=== PATIENT | female | born 1950 | race Caucasian/White ===

== ENCOUNTER 2017-02-24 08:23 | Day surgery (SDC) | payer OTHER, BC ==
[2017-02-17 11:39] VITALS: BMI 32.0
[2017-02-24] MEDS ORDERED: ROPIVICAINE 0.2%/MORPH PF/KETOROLAC - 51ML DISP.SYRINGE IA ONE ×2 (08:59→14:16)
[2017-02-24] MEDS ORDERED: oxyCODONE HCL 10 MG SUSTAINED ACTING TABLET PO ONE (08:59)
[2017-02-24] MEDS ORDERED: CEFAZOLIN 2 GM in DEXTROSE 5%-WATER - 50 ML IVPB ONE (08:59)
[2017-02-24] MEDS ORDERED: TRANEXAMIC ACID 1000 MG/10 ML VIAL IVPUSH ONE ×2 (08:59→14:15)
[2017-02-24] MEDS: CELECOXIB 200 MG CAPSULE PO ONE ×2 (09:04→17:55)
[2017-02-24] MEDS: GABAPENTIN 300 MG CAPSULE (FP) PO ONE ×2 (09:05→17:56)
[2017-02-24] MEDS ORDERED: ROPIVACAINE HCL 0.5% 30ML VIAL ONE (09:33)
[2017-02-24] MEDS ORDERED: DEXAMETHASONE SOD PHOSPHATE/PF 10 MG/ML SDV ONE (09:33)
[2017-02-24] MEDS ORDERED: MIDAZOLAM HCL 2 MG/2 ML SINGLE DOSE VIAL ONE ×2 (09:33→14:43)
[2017-02-24] MEDS ORDERED: BUPIVACAINE HCL/PF (5 MG/ML) 30 ML VIAL IJ ONE (09:56)
[2017-02-24] MEDS ORDERED: ceFAZolin SODIUM 1 GM VIAL ONE ×2 (10:25→11:25)
[2017-02-24] MEDS ORDERED: THROMBIN (BOVINE) 5,000 UNIT VIAL TP ONE (10:25)
[2017-02-24] MEDS ORDERED: GELATIN, ABSORBABLE 100 EACH SPONGE TP ONE (10:55)
--- NOTE | 2017-02-24 11:13 | HP ---
Admitting History and Physical - Admission Chief Complaint: left knee medial compartment OA. No pain in lateral or patellofemoral compartments. History of Present Illness: see office notes History Source: Patient Limitations to Obtaining History: No Limitations - Past Medical History ...: No Musculoskeletal: Yes: Osteoarthritis - Smoking History Smoking history: Former smoker Have you smoked in the past 12 months: No If you are a former smoker, when did you quit?: - Alcohol/Substance Use Hx Alcohol Use: Yes (SOCIALLY) Home Medications - Allergies Allergies/Adverse Reactions: Allergies Allergy/AdvReac Type Severity Reaction Status Date / Time morphine AdvReac Intermediate NAUSEA/VOMI Verified 02/24/17 08:42 TING oxycodone AdvReac Intermediate NAUSEA/VOMI Verified 02/24/17 08:42 TING SEASONAL Allergy Intermediate NASAL Uncoded 02/24/17 08:42 CONGESTION - Home Medications Home Medications: Ambulatory Orders Cholecalciferol (Vitamin D3) [Vitamin D3] 2,000 unit PO DAILY 02/17/17 Fluticasone Prop 0.05% Nasal [Flonase -] 1 - 2 spray NS DAILY PRN 02/17/17 Gabapentin 800 mg PO HS 02/17/17 Meloxicam [Mobic] 15 mg PO BID PRN 02/17/17 Multivitamins [Tab-A-Vit -] 1 tab PO DAILY 02/17/17 Tramadol HCl [Ultram] 1 - 2 tab PO Q6H PRN 02/17/17 Physical Examination Vital Signs: Vital Signs Temperature Pulse Rate Respiratory Rate Blood Pressure O2 Sat by Pulse Oximetry (%) 98 02/24/17 08:53 Constitutional: Yes: Well Nourished, No Distress Eyes: Yes: WNL, Conjunctiva Clear HENT: Yes: WNL, Atraumatic, Normocephalic Neck: Yes: WNL, Supple Cardiovascular: Yes: WNL, Regular Rate and Rhythm Respiratory: Yes: WNL, Regular Gastrointestinal: Yes: WNL, Soft, Abdomen, Obese ...Rectal Exam: Yes: Deferred Musculoskeletal: Yes: Joint Stiffness, Joint Swelling, Muscle Pain, Muscle Weakness Extremities: Yes: WNL Edema: No Peripheral Pulses WNL: No Integumentary: Yes: WNL Wound/Incision: Yes: Clean/Dry Neurological: Yes: WNL, Alert, Oriented ...Motor Strength: WNL Psychiatric: Yes: WNL, Alert, Oriented Labs: reviewed in chart Imaging - Results X-ray: Image Reviewed Cat Scan: Image Reviewed Assessment/Plan 66yo female with left knee OA, 100% of pain is on medial side - indicated for medial unicompartmental knee replacement, MAKOplasty.
[2017-02-24] MEDS ORDERED: TRANEXAMIC ACID 1000 MG/10 ML VIAL ONE ×2 (11:25→13:59)
[2017-02-24] MEDS ORDERED: PHENYLEPHRINE HCL 10 MG/1 ML SINGLE DOSE VIAL ONE (11:30)
[2017-02-24] MEDS ORDERED: VANCOMYCIN 1,000 MG VIAL (RESTRICTED TO ID ONLY) ONE (12:02)
[2017-02-24] MEDS ORDERED: ONDANSETRON 4 MG/2 ML VIAL ONE (12:28)
[2017-02-24] MEDS ORDERED: ePHEDrine SULFATE 50 MG/1 ML AMPULE ONE (12:31)
[2017-02-24] MEDS ORDERED: ONDANSETRON 4 MG/2 ML VIAL IVPB PRN (14:14)
[2017-02-24] MEDS ORDERED: MAG HYDROX/AL HYDROX/SIMETH 30 ML UNIT-DOSE CUP PO PRN (14:14)
[2017-02-24] MEDS ORDERED: LACTATED RINGERS SOLUTION 1,000 ML IV SCH (14:15)
[2017-02-24] MEDS ORDERED: VANCOMYCIN 1,000 MG VIAL (RESTRICTED TO ID ONLY) IVPB ONE (14:17)
[2017-02-24] MEDS ORDERED: oxyCODONE HCL 5 MG TABLET PO PRN ×2 (15:28)
[2017-02-24] MEDS: traMADol HCL 50 MG TABLET PO SCH ×2 (17:57→21:37)
[2017-02-24] MEDS: KETOROLAC TROMETHAMINE 30 MG/1 ML VIAL IVPUSH SCH ×2 (17:57→20:23)
[2017-02-24] MEDS: ACETAMINOPHEN 325 MG TABLET (FP) PO SCH ×2 (17:57→21:39)
--- NOTE | 2017-02-24 18:06 | OP ---
Operative Note - Note: Operative Date: 02/24/17 Pre-Operative Diagnosis: left knee medial comparment OA Operation: Left TKA Post-Operative Diagnosis: Same as Pre-op Surgeon: Kian Young Candle Wrapping Machine Operator: Malia Quiroz Anesthesia: Spinal
[2017-02-24] MEDS: CEFAZOLIN 2 GM/D5W 50 ML IVPB SCH (19:07)
[2017-02-24] MEDS: oxyCODONE HCL 10 MG SUSTAINED ACTING TABLET PO SCH (21:38)
[2017-02-24] MEDS: GABAPENTIN 300 MG CAPSULE (FP) PO SCH (21:38)
[2017-02-24] MEDS: SENNOSIDES/DOCUSATE COMBO (SENNA PLUS) TABLET (UD) PO SCH (21:39)
[2017-02-24] MEDS: ASCORBIC ACID 500 MG TABLET (FP) PO SCH (21:39)
[2017-02-24] MEDS: CELECOXIB 200 MG CAPSULE PO SCH (21:39)
[2017-02-25] MEDS: KETOROLAC TROMETHAMINE 30 MG/1 ML VIAL IVPUSH SCH ×2 (01:52→09:08)
[2017-02-25] MEDS: CEFAZOLIN 2 GM/D5W 50 ML IVPB SCH (02:31)
[2017-02-25] MEDS: traMADol HCL 50 MG TABLET PO SCH ×2 (02:32→09:09)
[2017-02-25] MEDS: ACETAMINOPHEN 325 MG TABLET (FP) PO SCH ×2 (05:44→09:12)
[2017-02-25 07:09] VITALS: BP 117/54; PULSE 76; TEMP 98
[2017-02-25] MEDS ORDERED: ASPIRIN 325 MG TABLET PO SCH (08:00)
[2017-02-25 08:50] LABS: MCHC 33.9 g/dl (32.0-36.0); MEAN CELL VOLUME 88.7 fl (80-96); MEAN PLT VOLUME 7.7 fl (7.5-11.1); PLATELET COUNT 355 K/MM3 (134-434); RDW 13.2 % (11.6-15.6); WHITE BLOOD COUNT 13.3 K/mm3 (4.0-10.0)
--- NOTE | 2017-02-25 08:52 | PN ---
Progress Note (short form) - Note Progress Note: S: PT. in a chair, eating breakfast. no c/o O: Vas 0/10 A/P: POD#1 s/p left partial knee replacement. doing well 1. Continue pain meds as ordered 2. No anesthetic cx.
[2017-02-25] MEDS: GABAPENTIN 300 MG CAPSULE (FP) PO SCH (09:09)
[2017-02-25] MEDS: CELECOXIB 200 MG CAPSULE PO SCH (09:09)
[2017-02-25] MEDS: SENNOSIDES/DOCUSATE COMBO (SENNA PLUS) TABLET (UD) PO SCH (09:10)
[2017-02-25] MEDS: oxyCODONE HCL 10 MG SUSTAINED ACTING TABLET PO SCH (09:10)
[2017-02-25] MEDS: ASCORBIC ACID 500 MG TABLET (FP) PO SCH (09:11)
[2017-02-25 09:50] LABS: CALCIUM 8.6 mg/dL (8.5-10.1); COCKROFT - GAULT 115.5745; CREATININE 0.6 mg/dL (0.55-1.02)
[2017-02-25] MEDS ORDERED: MULTIVITAMINS (DAILY MVI) TABLET (FP) PO SCH (10:00)
[2017-02-25] MEDS ORDERED: PANTOPRAZOLE 40 MG TABLET (FP) PO SCH (10:00)
--- NOTE | 2017-02-25 10:45 | PN ---
Progress Note (short form) - Note Progress Note: Pt seen and examined. Comfortable. AVSS Selected Entries 02/25/17 06:00 Temperature 98 F Pulse Rate 76 Respiratory 18 Rate Blood Pressure 117/54 Laboratory Tests 02/25/17 02/25/17 08:00 08:00 WBC 13.3 H Hgb 11.8 Hct 34.7 Plt Count 355 Sodium 140 Potassium 4.0 Chloride 105 Carbon Dioxide 30 Anion Gap 5 L BUN 11 Creatinine 0.6 Random Glucose 105 Calcium 8.6 Gen: NAD LLE: c/d/i, NVID A/P 66yo female POD#1 s/p L knee medial MAKOplasty 1. PT/OOB - WBAT LLE 2. D/C home today
--- NOTE | 2017-02-25 10:54 | DS ---
Physical Examination Vital Signs: Vital Signs Temperature 98 F 02/25/17 06:00 Pulse Rate 76 02/25/17 06:00 Respiratory Rate 18 02/25/17 06:00 Blood Pressure 117/54 02/25/17 06:00 O2 Sat by Pulse Oximetry (%) 93 L 02/25/17 08:34 Labs: CBC, BMP 02/25/17 08:00 02/25/17 08:00 Discharge Summary Reason For Visit: LT KNEE PARTIAL RELACEMENT Current Active Problems Osteoarthritis of left knee (Acute) Procedures: Principal: left makoplasty medial partial knee replacement Hospital Course: Admitted for elective surgery. Procedure performed without complications. Pt received postoperative antibiotic prophylaxis and DVT ppx. Ambulated with physical therapy. Stable for discharge home with outpatient followup. Condition: Stable - Instructions Diet, Activity, Other Instructions: Dr. Young - Knee Replacement Instructions Keep the Aquacel dressing on until removed by Dr. Young in 10-14 days - it is antibacterial and waterproof and you can shower with it on. Call the office for a follow-up appointment with Dr. Young in 10-14 days. Take one Aspirin 325mg daily for 6 weeks to prevent blood clots in your legs. Take one Pantoprazole 40mg daily for 6 weeks to protect against heartburn and ulcers. Take Celebrex 200mg twice daily for 30 days to reduce swelling and inflammation. Take a multivitamin and vitamin C supplement daily. Take a stool softener daily to prevent constipation. For pain: *Mild pain (1-3/10): Take 1 Tramadol tablet every 4 hours as needed. Moderate pain (4-6/10): Take 1 Tramadol tablet and 1 Percocet tablet every 4 hours as needed. Severe pain (7-10/10): Take 1 Tramadol tablet and 2 Percocet tablets every 4 hours as needed. Activity: You can put as much weight on the operative leg as you want. Right after you get home, there will be a physical therapist coming to your house to help you walk around and bend/straighten your knee. After your follow-up appointment, you will be sent for more intensive outpatient physical therapy which will include machines and equipment that the home therapist cannot bring to your house. Always use a walker or cane for balance and to prevent falls. Disposition: [facility]NS/HOME HEALTH CARE - Home Medications Comprehensive Discharge Medication List: Ambulatory Orders Cholecalciferol (Vitamin D3) [Vitamin D3] 2,000 unit PO DAILY 02/17/17 Fluticasone Prop 0.05% Nasal [Flonase -] 1 - 2 spray NS DAILY PRN 02/17/17 Gabapentin 800 mg PO HS 02/17/17 Multivitamins [Multivit ([facility] Form[facility])] 1 tab PO DAILY 02/17/17 Ascorbic Acid [Vitamin C -] 500 mg PO BID tablet 02/25/17 Aspirin [ASA -] 325 mg PO DAILY@0800 tablet 02/25/17 Celecoxib [CeleBREX -] 200 mg PO BID #60 tab 02/25/17 Multivitamins [Multivit ([facility] Form[facility])] 1 tab PO DAILY tab 02/25/17 Oxycodone HCl/Acetaminophen [Percocet 5-325 mg Tablet] 1 - 2 tab PO Q4H PRN #60 tablet MDD 8 02/25/17 Pantoprazole Sodium [Protonix -] 40 mg PO DAILY #40 tab 02/25/17 Sennosides/Docusate Sodium [Pericolace -] 1 tablet PO BID tablet 02/25/17 Tramadol HCl [Ultram -] 50 mg PO Q4H PRN #90 tablet MDD 6 02/25/17
--- NOTE | 2017-02-25 14:16 | SURG ---
Surgery Picking Belt Operator Note Picking Belt Operator: Malia Quiroz PA-C Date of Service: 02/24/17 Diagnosis: left knee medial compartment OA Procedure: left makoplasty medial partial knee replacement I was present for the entirety of the operative procedure. For further detail, please refer to operative report. Visit type - Case Type Case Type: Scheduled Admission - Emergency Emergency Visit: No - New patient This patient is new to me today: Yes Date on this admission: 02/24/17 - Critical Care Critical Care patient: No
--- NOTE | 2017-04-01 15:28 | SPEC ---
DATE OF OPERATION: 02/25/2017 PREOPERATIVE DIAGNOSIS: Left knee medial compartment osteoarthritis. POSTOPERATIVE DIAGNOSIS: Left knee medial compartment osteoarthritis. PROCEDURE: Left knee medial unicompartmental Makoplasty knee replacement. ATTENDING: Kian Young MD CORPORATE TAX MANAGER: ANESTHESIA: Spinal plus sedation. ESTIMATED BLOOD LOSS: 50 mL. COMPLICATIONS: None. SPECIMENS: None. DISPOSITION: The patient was transferred to the PACU in stable condition. IMPLANT USED: JOSÉ size 3 femoral component, JOSÉ size 3 tibial component, 10-mm polyethylene component. INDICATIONS: This is a 66-year-old female who presented to the office complaining of severe left knee pain. She was seen and examined by Dr. Young and diagnosed with left knee medial compartment osteoarthritis. The patient had stated that 100% of her pain was coming from the medial compartment, and on exam she had no symptoms coming from the lateral and patellofemoral compartments of the knee. All of her pain was localized to the medial compartment. She was initially treated nonoperatively with injections, medications, and physical therapy but continued to have severe pain and ambulatory dysfunction. We discussed Makoplasty partial knee replacement, and she decided to proceed with the procedure. The risks, benefits, and alternatives of the procedure were explained to the patient in great detail and she elected to proceed with the surgery. DESCRIPTION OF PROCEDURE: On the day of surgery the patient was taken to the operating room. Spinal anesthesia was administered by the anesthesiologist. The patient was then positioned supine on the table and all bony prominences were padded. A nonsterile tourniquet was placed on the proximal thigh of the operative leg. The knee was then prepped and draped in the usual sterile fashion and intravenous antibiotics were given for infection prophylaxis. A surgical time out was then performed with the team and the patient's identify, procedure, side, availability of implants and the administration of antibiotics was confirmed. With the knee flexed, an 8 cm incision was made just slightly medial to the midline and carried down through the subcutaneous fat to the underlying retinaculum. Electrocautery was used to achieve hemostasis. A limited medial parapatellar arthrotomy was performed. This was followed by a subperiosteal dissection of the tissue off the proximal medial tibia. A portion of fat pad was removed from under the patellar tendon to improve visualization and a small portion of fat was excised off the distal supracondylar femur. The knee was then flexed further and the anterior horn of the medial meniscus was released. Grade 4 changes were noted diffusely throughout the medial compartment. The lateral compartment appeared to be in good condition. Femoral and tibial checkpoints were then placed in the appropriate location using a mallet. Two parallel bicortical self-drilling pins were placed in the proximal tibia after making stab incisions and bluntly dissecting down to bone. These were positioned approximately 10 cm distal to the tibial tubercle. Two pins were then placed in the proximal femur using the same technique. These were located approximately 10 cm proximal to the superior pole of the patella. The [employer] navigation arrays were then attached to both the femoral and tibial pins and the lower extremity was then registered to the robotic navigation device using various joint movements, as well as inputting approximately 50 checkpoints. The knee was then taken through a full range of motion with a corrective valgus force applied. Alignment in varus/valgus was measured at 0, 30, 60, 90 and 120 degrees of flexion to determine soft tissue balance in all of these positions. The navigation device showed appropriate tracking of the virtual components on the screen, as well as a graphic representation of the soft tissue balance. The components were repositioned virtually using the software until optimal soft tissue balance was achieved. Once this was accomplished, the final plan was saved and sent to the robot. Retractors were then placed around the distal femur. The robot was brought into the sterile field and registered with the navigation device. The robotic arm with a livia was then used to remove the appropriate amount of bone from the femur and tibia as per the saved software plan. The knee was then irrigated. Trial components were placed and the knee was taken through a full range of motion to assess soft tissue balance and alignment. The tracking and range of motion were found to be excellent and the soft tissue balance was optimal and according to plan. All trial components were then removed and an Esmarch bandage was used to exsanguinate the leg. The tourniquet was inflated in preparation for cementing. All bony surfaces were cleaned with pulsatile lavage and dried. Bone cement was then prepared on the back table and final components were cemented in place in the usual fashion. Extruded cement was removed. Once the cement had hardened, the knee was taken through a full range of motion to assess stability, balance and patellar tracking. These were found to be optimal. The trial polyethylene was exchanged for a final implant. Medial and inferior osteophytes were debrided off the patella (patelloplasty). The navigation arrays and Amada pins were removed from the femur and tibia. All wounds were then thoroughly irrigated with normal saline. A periarticular injection was used to locally infiltrate the capsular tissues surrounding the implant and prosthesis. A 1 Vicryl and 0 V-Loc 180 barbed sutures were used to close the arthrotomy. 2-0 Vicryl sutures were used in the subcutaneous tissues. The skin was closed using both 3-0 V-Loc 90 suture in a running subcuticular fashion and Dermabond skin adhesive. 4-0 undyed Vicryl and Dermabond skin adhesive was used to close the stab incisions made for the navigation pins. Once this was completed, sterile Aquacel dressings were applied to each incision site. A compressive dressing was applied. The tourniquet was then deflated and the patient was awakened and went to the PACU in stable condition. Jada [id number]
== END 2017-02-25 13:22 | disposition home health service (06) ==
LOC: FASU 08:23 → FM/S 08:59 → FASU 02-25 13:22
PROVIDERS: ATTEND Student in an Organized Health Care Education/Training Program
PROC: 8E0YXBZ Computer Assisted Procedure of Lower Extremity (ICD-10-PCS; 2017-02-24)
PROC: 8E0Y0CZ Robotic Assisted Procedure of Lower Extremity, Open Approach (ICD-10-PCS; 2017-02-24)
PROC: 0SRD0L9 Replacement of Left Knee Joint with Medial Unicondylar Synthetic Substitute, Cemented, Open Approach (ICD-10-PCS; principal; 2017-02-24 11:00)
DX: M17.12 Unilateral primary osteoarthritis, left knee (principal); Z87.891 Personal history of nicotine dependence
CPT/HCPCS: 20985; 27446; C1776; S2900; 36415; 73560-TC-LT; 80048; 85027; 94760; 97010-GP; 97116-GP; 97161-GP